=== PATIENT | male | born 1965 | race Caucasian/White ===

== ENCOUNTER → 2021-02-25 14:47 | Outpatient (CLI) | payer OTHER, SELFPAY ==
--- NOTE | 2021-02-25 14:51 | DI.RAD.S_ITS ---
PROCEDURE: XR HIP W PEL IF DONE RT 2V INDICATIONS: R hip pain s/p fall TECHNIQUE: AP pelvis with lateral view of the right hip. COMPARISON: None. FINDINGS: Bones: No fractures or dislocations. Pelvic ring appears intact. No suspicious bony lesions. Soft tissues: The visualized bowel gas pattern is normal. No suspicious soft tissue calcifications. IMPRESSION: 1. No fracture or dislocation. Dictated by: Rafa Bolaños M.D. on 02/25/2021 at 15:37 Approved by: Rafa Bolaños M.D. on 02/25/2021 at 15:38
--- NOTE | 2021-02-25 14:51 | DI.RAD.S_ITS ---
PROCEDURE: XR SHOULDER RT MIN 2V INDICATIONS: R shoulder/clavicle pain s/p fall TECHNIQUE: 3 views of the shoulder were acquired. COMPARISON: None. FINDINGS: Bones: No fractures or dislocations. No suspicious bony lesions. Visualized ribs appear intact. Mild to moderate degenerative hypertrophy at the AC joint appreciated. Soft tissues: No suspicious soft tissue calcifications. Punctate calcifications near the rotator cuff insertion. IMPRESSION: No fracture. [id number] shoulder DJD. Question of calcific tendinitis. Dictated by: Jose Alberto Lewis M.D. on 02/25/2021 at 15:42 Approved by: Jose Alberto Lewis M.D. on 02/25/2021 at 15:43
--- NOTE | 2021-02-25 14:51 | DI.RAD.S_ITS ---
PROCEDURE: XR KNEE RT 3V INDICATIONS: R knee pain s/p fall TECHNIQUE: 3 views of the knee were acquired. COMPARISON: None. FINDINGS: Bones: No fractures or dislocations. No suspicious bony lesions. Soft tissues: No joint effusion. No suspicious soft tissue calcifications. IMPRESSION: 1. No fracture or dislocation. Dictated by: Rafa Bolaños M.D. on 02/25/2021 at 15:38 Approved by: Rafa Bolaños M.D. on 02/25/2021 at 15:42
== END ==
PROVIDERS: Referring Provider Physician Assistant; Visit Provider Physician Assistant
DX: M25.561 Pain in right knee (principal); M25.511 Pain in right shoulder; M19.011 Primary osteoarthritis, right shoulder
CPT/HCPCS: 73030; 73502; 73562

== ENCOUNTER 2021-03-27 14:54 | Emergency (ER) | payer OTHER, SELFPAY ==
[2021-03-27] VITALS (7 sets, daily range): BP systolic 127–138; BP diastolic 77–88; PULSE 79–97; RESP 12–20; TEMP 36.6; O2SAT 95–98; BMI 39.2
[2021-03-27 16:09] LABS: Add Manual Diff / Slide Review NO; Basophils Absolute Auto 100 /uL (0-100); Basophils Percent Auto 1.1 % (0-2); Eosinophils Absolute Auto 200 /uL (0-450); Eosinophils Percent Auto 2.3 % (2-4); Hemoglobin 16.7 g/dL (13.5-17.5); Lymphocytes Absolute Auto 3600 /uL (1100-4500); Lymphocytes Percent Auto 34.7 % (25-40); Mean Corpuscular HGB Conc 34.1 % (30-36); Mean Corpuscular Hemoglobin 30.6 PG (26-34); Mean Corpuscular Volume 89.5 fL (80-100); Monocytes Absolute Auto 800 /uL (0-900); Monocytes Percent Auto 7.2 % (3-14); Neutrophils Absolute Auto 5800 /uL (1500-7000); Neutrophils Percent Auto 54.7 % (50-75); Platelet Count 238 X10^3/uL (150-400); Red Blood Cell Count 5.47 X10^6/uL (4.5-5.9); Red Cell Distribution Width 13.9 % (11.6-14.8); White Blood Cell Count 10.5 X10^3/uL (4.5-11.0)
[2021-03-27 16:18] LABS: Alanine Aminotransferase 51 IU/L (<50); Albumin 4.6 g/dL (3.5-5.0); Albumin Globulin Ratio 1.2 (1.0-2.8); Alkaline Phosphatase 63 U/L (38-126); Aspartate Aminotransferase 38 IU/L (17-59); BUN Creatinine Ratio 14.5 (6-22); Bilirubin Total 0.7 mg/dL (0.2-1.3); Blood Urea Nitrogen 11 mg/dL (9-20); Calcium 9.9 mg/dL (8.4-10.2); Carbon Dioxide 24 mmol/L (22-32); Chloride 108 mmol/L (98-107); Estimated Glomerular Filt Rate > 60.0 mL/min (>60); Globulin 3.7 g/dL (1.7-4.1); Glucose 101 mg/dL (70-100); HEMOLYSIS 44 (0-50); Lipase 93 U/L (23-300); Sodium 142 mmol/L (137-145); Total Protein 8.3 g/dL (6.3-8.2)
--- NOTE | 2021-03-27 16:39 | ED.ABDPAIN ---
HPI - Abdominal Pain General Chief Complaint: Abdominal Pain Stated Complaint: appendix issues Time Seen by Provider: 03/27/21 15:35 Source: patient Mode of arrival: Ambulatory Limitations: no limitations History of Present Illness HPI narrative: This is a 55-year-old male who comes emergency department with complaint of right lower quadrant pain that started last night. Patient states it has continued to be present. He denies any fevers or chills. He denies any nausea or vomiting. He denies any changes to bowel movements. He denies any issues with urination. Patient states he has chronic low back pain which has not changed in intensity or characteristic. He takes methocarbamol for chronic neck pain. Patient has spinal stenosis. Patient states he has had his gallbladder removed. Denies any allergies to medications. Positive for tobacco, no alcohol, no illicit. Patient's last meal was last night he had a delicious steak and his last fluids were this morning between 630 in 830 he had 2 cups of coffee. Related Data Previous Rx's Medication Instructions Recorded methocarbamol 750 mg tablet 750 mg PO Q4H #30 tab 02/25/21 hydrocodone-acetaminophen 1 tab PO QID PRN #5 tab 03/27/21 Allergies Allergy/AdvReac Type Severity Reaction Status Date / Time No Known Drug Allergies Allergy Verified 03/27/21 15:10 Review of Systems Review of Systems ROS Unobtainable: All systems reviewed & are unremarkable except as noted in HPI and below Patient History Social History Smoking Status: Unknown if ever smoked Smoking Status: Unknown if ever smoked Substance Use Type: does not use Exam Narrative Exam Narrative: GENERAL: Alert and oriented x three, obese male in mild distress. HEENT: Head normocephalic, atraumatic, EOMI, pupils reactive, face symmetric, moist mucous membranes NECK: Supple, full range of motion CARDIOVASCULAR: Regular rate and rhythm without murmurs, rubs or gallops. RESPIRATORY: Breath sounds equal bilaterally, no wheezes rales or rhonchi. ABDOMEN: Soft, positive for right lower quadrant tenderness. Normoactive bowel sounds all 4 quadrants. No guarding, positive for rebound, no rigidity, no mass : No CVA tenderness EXTREMITIES: Normal range of motion, no clubbing or edema. Neurovascularly intact NEUROLOGICAL: Cranial nerves II through XII grossly intact. Moving all extremities SKIN: Warm, dry, no petechiae, no rashes or lesions. Initial Vital Signs Initial Vital Signs: Vital Signs Temperature 97.8 F 03/27/21 15:07 Pulse Rate 95 H 03/27/21 15:07 Respiratory Rate 12 03/27/21 15:07 Blood Pressure 127/77 03/27/21 15:07 Pulse Oximetry 98 03/27/21 15:07 Course Orders Ordered: ED Orders 03/27/21 15:11 EKG-12 Lead Stat 03/27/21 15:55 Complete Blood Count AUTO DIFF Stat Comprehensive Metabolic Panel Stat Lipase Stat 03/27/21 17:01 CT abdomen pelvis w con Stat 03/27/21 17:15 COVID19 - ADMIT ([employer] swab/PCR) Stat Consultations Consultation #1: Dr. Villalobos, discussed likely appendicitis. Going for CT and will recontact after imaging is done. Time: 17:05 Vital Signs Vital signs: Vital Signs - 8 hr 03/27/21 15:07 03/27/21 16:01 03/27/21 16:16 Temperature 97.8 F Pulse Rate 95 H 89 87 Respiratory Rate 12 Blood Pressure 127/77 129/80 Pulse Oximetry 98 95 95 03/27/21 16:30 03/27/21 17:18 03/27/21 17:30 Temperature Pulse Rate 85 97 H 81 Respiratory Rate 19 14 17 Blood Pressure 135/79 138/88 Pulse Oximetry 95 98 03/27/21 18:00 Temperature Pulse Rate 79 Respiratory Rate 20 Blood Pressure 129/83 Pulse Oximetry 96 MDM - Abdominal Pain Lab Data Attestation: I reviewed the patient's lab results. Result diagrams: 03/27/21 15:55 03/27/21 15:55 Labs: Lab Results 03/27/21 03/27/21 03/27/21 Range/Units 15:55 15:55 17:15 WBC 10.5 (4.5-11.0) X10^3/uL RBC 5.47 (4.5-5.9) X10^6/uL Hgb 16.7 (13.5-17.5) g/dL Hct 49.0 (41-53) % MCV 89.5 (80-100) fL MCH 30.6 (26-34) PG MCHC 34.1 (30-36) % RDW 13.9 (11.6-14.8) % Plt Count 238 (150-400) X10^3/uL Neut % (Auto) 54.7 (50-75) % Lymph % (Auto) 34.7 (25-40) % [place] % (Auto) 7.2 (3-14) % Eos % (Auto) 2.3 (2-4) % Baso % (Auto) 1.1 (0-2) % Neut # (Auto) 5800 (8490-1341) /uL Lymph # (Auto) 3600 (5969-4439) /uL [place] # (Auto) 800 (0-900) /uL Eos # (Auto) 200 (0-450) /uL Baso # (Auto) 100 (0-100) /uL Sodium 142 (137-145) mmol/L Potassium 4.0 (3.4-5.1) mmol/L Chloride 108 H (98-107) mmol/L Carbon Dioxide 24 (22-32) mmol/L BUN 11 (9-20) mg/dL Creatinine 0.76 (0.66-1.25) mg/dL Estimated GFR > 60.0 (>60) mL/min BUN/Creatinine Ratio 14.5 (6-22) Glucose 101 H (70-100) mg/dL Calcium 9.9 (8.4-10.2) mg/dL Total Bilirubin 0.7 (0.2-1.3) mg/dL AST 38 (17-59) IU/L ALT 51 H (<50) IU/L Alkaline Phosphatase 63 (38-126) U/L Total Protein 8.3 H (6.3-8.2) g/dL Albumin 4.6 (3.5-5.0) g/dL Globulin 3.7 (1.7-4.1) g/dL Albumin/Globulin Ratio 1.2 (1.0-2.8) Lipase 93 (23-300) U/L SARS-CoV-2 (PCR) Negative (Negative) Point of care testing: Urine Dip Bedside Urine Glucose Negative Bedside Urine Bilirubin - Negative Bedside Urine Ketone - Negative Urine Specific [place] 1.030 Bedside Urine Occult Blood - Negative Bedside Urine pH 6.0 Bedside Urine Protein ++ 100 Bedside Urine Urobilinogen - Negative Bedside Urine Nitrite - Negative Bedside Urine Leukocytes - Negative Esterase ECG Data Attestation: I personally reviewed and interpreted this ECG as follows: Prior ECG tracings: not available for review Interpretation: Normal sinus rhythm rate 86 [place] 154 QRS of [address] elevation or depression. MDM Narrative Medical decision making narrative: This is a 55-year-old male with right lower quadrant pain that started last night. Patient is quite uncomfortable. Labs are negative with negative urine. Patient does not really have any other symptoms. CT imaging and does not visualize the appendix but there was no changes around the area of the cecum. It is noted that patient has appears to be epiploic appendagitis with an area of change at the sigmoid colon which is torturous on the right. This is consistent with patient's physical exam. Reviewed findings with patient today. He is where we did not find the appendix but unlikely to be a true appendicitis. 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 Plan for NSAIDs. Patient asked for a few tablets of narcotic pain medication to help him sleep at night. Denies any additional questions or concerns. Discharge Plan Departure Patient Disposition: Home Clinical Impression: Epiploic appendagitis Activity Restrictions/Additional Instructions: Your imaging today shows Epiploic appendagitis, this is a situation where the fact twists and becomes inflamed. It is not typically dangerous and typically resolves on it's own in 1-2 weeks. It also shows a diffuse fatty liver and a left adrenal lipoma is noted. Your appendix itself is not clearly identified but the likely source of your pain is found at the distal sigmoid colon on the right side. Treatment is typically pain control with NSAIDs. You may take ibuprofen up to 800 mg every 8 hours and/or Tylenol to a 1000 mg every 8 hours as needed for pain. If necessary may take narcotic pain medication in addition. This medication can make you sleepy do not drive, perform hazardous activities or make any major decisions while taking it. This medication will make you constipated please take a stool softener once to twice daily until stools are soft and regular. Prescription to [facility]. Please return for fevers greater than 100.4 F, new or worsening abdominal, back or flank pain, persistent vomiting, black or bloody stools, difficulty with urination or other new or concerning symptoms. Prescriptions: New hydrocodone-acetaminophen 5-325 mg tablet 1 tab PO QID PRN (Reason: pain) Qty: 5 RF: 0 No Action methocarbamol 750 mg tablet 750 mg PO Q4H Qty: 30 RF: 0 Referrals: Michael Garcia MD [Primary Care Provider] -
--- NOTE | 2021-03-27 17:01 | DI.CT.S_ITS ---
PROCEDURE: CT ABDOMEN PELVIS W CON INDICATIONS: RLQ pain. TECHNIQUE: After the administration of intravenous contrast, axial sections acquired from the lung bases to the pubic symphysis. Coronal and sagittal reformats were performed. For radiation dose reduction, the following was used: automated exposure control, adjustment of mA and/or kV according to patient size. COMPARISON: None. FINDINGS: Image quality: Excellent. Lung bases: Unremarkable. Heart: No significant findings. ABDOMEN: Liver: Diffuse fatty liver infiltration is noted. Gallbladder: Removed. Biliary ducts: Unremarkable. Pancreas: Unremarkable. Spleen: Unremarkable. Adrenal Glands: There is a left adrenal lipoma seen, as on series 2, image 25 measuring 14 mm. Kidneys and Ureters: Unremarkable. Stomach and Bowel: In this patient with this given history, scrutiny is given to the appendix and the right lower quadrant. No appendix (either normal or abnormal) is identified on this study. Focal inflammatory change can be seen surrounding a focus of fat connected to the distal sigmoid colon, which is tortuous and on the right. There is mild associated wall thickening seen of the distal sigmoid colon. No abscess is seen. Peritoneum: No abnormal intraperitoneal fluid. No free air. Ventral Wall: No hernias. Abdominal Nodes: No retroperitoneal or mesenteric adenopathy by size criteria. Vessels: Aorta and inferior vena cava are normal in size. PELVIS: Pelvic Organs: Unremarkable. Bladder: Unremarkable. Pelvic Nodes: No enlarged lymph nodes. Miscellaneous: No hernias are seen. Bones: Age-appropriate bony degenerative changes are seen. IMPRESSION: Epiploic appendagitis. This is a benign, self-limited process. No appendix (either normal or abnormal) is identified on this study. Incidental note is made of: Fatty liver infiltration Cholecystectomy Left adrenal lipoma, benign Note: Case discussed by telephone with Dr. Zambrano at 4:52 p.m. [place] time on March 27, 2021. Dictated by: Santos Borrego M.D. on 03/27/2021 at 16:47 Approved by: Santos Borrego M.D. on 03/27/2021 at 16:53
[2021-03-27 18:20] LABS: COVID19 - ADMIT (NP swab/PCR) Negative (Negative)
== END 2021-03-27 18:24 | disposition home or self-care (01) ==
PROVIDERS: Emergency Medicine; Emergency Provider Emergency Medicine; PCP Family Medicine
DX: K63.89 Other specified diseases of intestine (principal); R10.31 Right lower quadrant pain; D17.79 Benign lipomatous neoplasm of other sites; Z20.822 Contact with and (suspected) exposure to COVID-19
CPT/HCPCS: 36415; 74177; 80053; 81003; 83690; 85025; 87635; 93005; 93010; 99284; C9803; Q9967

== ENCOUNTER 2022-03-29 20:32 | Emergency (ER) | payer OTHER, SELFPAY ==
[2022-03-29 20:46] VITALS: BP 118/86; PULSE 111; RESP 16; TEMP 37.4; O2SAT 93; BMI 40.0
--- NOTE | 2022-03-29 21:14 | DI.RAD.S_ITS ---
PROCEDURE: XR CHEST 1V INDICATIONS: short of breath TECHNIQUE: One view of the chest was acquired. COMPARISON: None. FINDINGS: Surgical changes and devices: None. Lungs and pleura: There are patchy indistinct airspace opacities bilaterally. The medial lung apices are partially obscured by patient's neck soft tissues. No definite pleural effusions or pneumothorax. Mediastinum: Mediastinal contours appear normal. Heart size is normal. Bones and chest wall: No suspicious bony lesions. Overlying soft tissues appear unremarkable. IMPRESSION: 1. Bilateral patchy indistinct opacities are nonspecific but suggestive of pneumonia. Dictated by: Rafa Bolaños M.D. on 03/29/2022 at 23:21 Approved by: Rafa Bolaños M.D. on 03/29/2022 at 23:23
[2022-03-29 21:26] LABS: COVID19 -Nasal RAPID Negative (Negative)
--- NOTE | 2022-03-29 21:44 | ED.SEPSIS ---
HPI - Sepsis General Chief Complaint: Fever Evaluation Sepsis Screen: Possible Sepsis Risk Sepsis Infection Criteria Present: Suspected New Infection Narrative: Patient is a 56-year-old male who has history of tobacco abuse presents today with fever ongoing for the last 3 days. He said last night it was as high as 104. He has had significant chills. He is currently afebrile. He denies any worsening productive cough he has no shortness of breath no chest pain no nausea no vomiting painful or frequent urination. He actually states he feels okay now but is concerned because he has had these ongoing fevers and extreme fatigue. COVID test in the ED is currently negative. Review of Systems Review of Systems Narrative: GENERAL: Fever, fatigue, see HPI HEENT: Denies sinus pain, ear pain, sore throat, difficulty swallowing, neck pain RESPIRATORY: Denies dyspnea, cough, wheezing, hemoptysis, sputum. CARDIOVASCULAR: Denies chest pain, palpitations, orthopnea, edema GASTROINTESTINAL: Denies nausea, vomiting, abdominal pain, diarrhea, constipation, melena. : Denies dysuria, frequency, incontinence, hematuria, urinary retention, flank pain. MUSCULOSKELETAL: Denies weakness, joint pain, or bony pain SKIN: No rash, no erythema, no pruritus NEUROLOGIC: Denies weakness, dizziness, headache, numbness, change in speech, confusion PSYCHIATRIC: No concerning psychosocial issues. 12 point review of systems is negative except for those stated above and HPI Patient History Social History Smoking Status: Unknown if ever smoked Smoking Status: Unknown if ever smoked Substance Use Type: does not use Exam Initial Vital Signs Initial Vital Signs: Vital Signs Temperature 99.3 F 03/29/22 20:46 Pulse Rate 111 H 03/29/22 20:46 Respiratory Rate 16 03/29/22 20:46 Blood Pressure 118/86 03/29/22 20:46 Pulse Oximetry 93 03/29/22 20:46 Oxygen Delivery Method 03/29/22 20:46 GENERAL: Alert well-appearing 56-year-old male and in no acute distress. HEENT: Head atraumatic,EOMI, pupils reactive, face symmetric, moist mucous membranes CARDIOVASCULAR: Regular rate and rhythm without murmurs, rubs or gallops. RESPIRATORY: Breath sounds equal bilaterally, no wheezes rales or rhonchi. ABDOMEN: Soft, nontender. Normoactive bowel sounds all 4 quadrants. No guarding or rebound. EXTREMITIES: Normal range of motion, no clubbing or edema. Neurovascularly intact NEUROLOGICAL: Alert and oriented x4. SKIN: Warm, dry, no laceration, no petechiae, no rashes or lesions. Scores CURB-65 Confusion: No BUN >19mg/dL (>7mmol/L): No Respiratory rate greater or equal to 30: No SBP <90mmHg or DBP less or equal to 60mmHg: No Age 65 or Older: No CURB-65 Total: 0 Score 0-1 Outpatient care, Score 2 Inpt vs. Obs, Score 3 or over Inpt admit with ICU for score of 4-5 Course Orders Ordered: ED Orders 03/29/22 20:45 COVID19 -Nasal RAPID/Pre-Proc Stat 03/29/22 21:14 Chest [XR chest 1V] Stat 03/29/22 22:13 EKG-12 Lead Stat 03/29/22 22:20 Complete Blood Count AUTO DIFF Stat Comprehensive Metabolic Panel Stat Lactate (Lactic Acid) Stat NT-proBNP (BNP-Adult 18+) Stat Procalcitonin Stat Troponin & CK Cardiac Panel Stat 03/29/22 22:45 Blood Culture Stat 03/29/22 23:08 Urinalysis and Microscopic Stat Discontinued Medications Doxycycline Hyclate (Doxycycline Hyclate 100 Mg Tablet) 100 mg PO NOW ONE Stop: 03/29/22 23:54 Last Admin: 03/29/22 23:58 Dose: 100 mg Documented By: KIRSTEN Sodium Chloride (Normal Saline 0.9%) 1,000 mls @ 1,000 mls/hr IV BOLUS ONE Stop: 03/29/22 23:59 Last Admin: 03/29/22 23:06 Dose: 1,000 mls/hr Documented By: KIRSTEN Vital Signs Vital signs: Vital Signs - 8 hr 03/29/22 20:46 03/29/22 22:23 03/29/22 22:25 Temperature 99.3 F Pulse Rate 111 H 100 H Respiratory Rate 16 Blood Pressure 118/86 142/80 H Pulse Oximetry 93 93 Oxygen Delivery Method Room Air 03/29/22 22:25 03/29/22 22:30 03/29/22 22:30 Temperature Pulse Rate 99 H 100 H Respiratory Rate 25 H 22 Blood Pressure 137/78 Pulse Oximetry 92 90 L Oxygen Delivery Method 03/29/22 23:00 03/29/22 23:30 03/30/22 00:00 Temperature Pulse Rate 99 H 97 H 98 H Respiratory Rate 25 H 21 22 Blood Pressure Pulse Oximetry 96 96 96 Oxygen Delivery Method 03/30/22 00:01 03/30/22 00:01 Temperature Pulse Rate 96 H Respiratory Rate 21 Blood Pressure 146/77 H Pulse Oximetry 95 Oxygen Delivery Method Sepsis Guideline Criteria Level 1 - Infection Sepsis Infection Criteria Present: Suspected New Infection Treatment Initiated Antibiotics:: IV antimicrobials will be initiated as soon as possible after recognition of sepsis state and within one hour for both sepsis and septic shock. MDM - Sepsis Lab Data Result diagrams: 03/29/22 22:20 03/29/22 22:20 Labs: Lab Results 03/29/22 03/29/22 03/29/22 Range/Units 20:45 22:20 22:20 WBC 7.8 (4.5-11.0) X10^3/uL RBC 5.50 (4.5-5.9) X10^6/uL Hgb 17.0 (13.5-17.5) g/dL Hct 48.4 (41-53) % MCV 87.9 (80-100) fL MCH 30.9 (26-34) PG MCHC 35.1 (30-36) % RDW 13.7 (11.6-14.8) % Plt Count 214 (150-400) X10^3/uL Neut % (Auto) 59.4 (50-75) % Lymph % (Auto) 26.0 (25-40) % [place] % (Auto) 11.7 (3-14) % Eos % (Auto) 2.1 (2-4) % Baso % (Auto) 0.8 (0-2) % Neut # (Auto) 4600 (1315-9896) /uL Lymph # (Auto) 2000 (4992-1827) /uL [place] # (Auto) 900 (0-900) /uL Eos # (Auto) 200 (0-450) /uL Baso # (Auto) 100 (0-100) /uL Sodium 142 (137-145) mmol/L Potassium 3.7 (3.4-5.1) mmol/L Chloride 108 H (98-107) mmol/L Carbon Dioxide 24 (22-32) mmol/L BUN 10 (9-20) mg/dL Creatinine 0.87 (0.66-1.25) mg/dL Estimated GFR > 60 (>60) mL/min BUN/Creatinine Ratio 11.5 (6-22) Glucose 149 H (70-100) mg/dL Lactate (0.7-2.1) mmol/L Calcium 9.0 (8.4-10.2) mg/dL Total Bilirubin 0.5 (0.2-1.3) mg/dL AST 33 (17-59) IU/L ALT 47 (<50) IU/L Alkaline Phosphatase 52 (38-126) U/L Total Creatine Kinase 70 (55-170) U/L CK-MB (CK-2) TNP CK-MB (CK-2) Rel Index TNP Troponin I < 0.012 (0.01-0.034) ng/mL NT-Pro-B Natriuret Pep 21 (<125) pg/mL Total Protein 8.0 (6.3-8.2) g/dL Albumin 4.4 (3.5-5.0) g/dL Globulin 3.6 (1.7-4.1) g/dL Albumin/Globulin Ratio 1.2 (1.0-2.8) Procalcitonin 0.77 H (<0.5) ng/mL Urine Color Urine Appearance Urine pH (4.5-8.0) Ur Specific [place] (1.000-1.035) Urine Protein (Negative) Urine Glucose (UA) (Negative) g/dL Urine Ketones (NEGATIVE) Urine Occult Blood (Negative) Urine Nitrate (Negative) Urine Bilirubin (NEGATIVE) Urine Urobilinogen (0.2) E.U./dL Ur Leukocyte Esterase (NEGATIVE) Urine RBC (0-5/HPF) Urine WBC (0-5/HPF) Urine Bacteria (None) Ur Culture Indicated? SARS-CoV-2 (PCR) Negative (Negative) 03/29/22 03/29/22 Range/Units 22:20 23:08 WBC (4.5-11.0) X10^3/uL RBC (4.5-5.9) X10^6/uL Hgb (13.5-17.5) g/dL Hct (41-53) % MCV (80-100) fL MCH (26-34) PG MCHC (30-36) % RDW (11.6-14.8) % Plt Count (150-400) X10^3/uL Neut % (Auto) (50-75) % Lymph % (Auto) (25-40) % [place] % (Auto) (3-14) % Eos % (Auto) (2-4) % Baso % (Auto) (0-2) % Neut # (Auto) (9564-4813) /uL Lymph # (Auto) (3052-1186) /uL [place] # (Auto) (0-900) /uL Eos # (Auto) (0-450) /uL Baso # (Auto) (0-100) /uL Sodium (137-145) mmol/L Potassium (3.4-5.1) mmol/L Chloride (98-107) mmol/L Carbon Dioxide (22-32) mmol/L BUN (9-20) mg/dL Creatinine (0.66-1.25) mg/dL Estimated GFR (>60) mL/min BUN/Creatinine Ratio (6-22) Glucose (70-100) mg/dL Lactate 1.6 (0.7-2.1) mmol/L Calcium (8.4-10.2) mg/dL Total Bilirubin (0.2-1.3) mg/dL AST (17-59) IU/L ALT (<50) IU/L Alkaline Phosphatase (38-126) U/L Total Creatine Kinase (55-170) U/L CK-MB (CK-2) CK-MB (CK-2) Rel Index Troponin I (0.01-0.034) ng/mL NT-Pro-B Natriuret Pep (<125) pg/mL Total Protein (6.3-8.2) g/dL Albumin (3.5-5.0) g/dL Globulin (1.7-4.1) g/dL Albumin/Globulin Ratio (1.0-2.8) Procalcitonin (<0.5) ng/mL Urine Color Yellow Urine Appearance Clear Urine pH 6.5 (4.5-8.0) Ur Specific [place] 1.015 (1.000-1.035) Urine Protein 2+ H (Negative) Urine Glucose (UA) Negative (Negative) g/dL Urine Ketones Trace H (NEGATIVE) Urine Occult Blood Negative (Negative) Urine Nitrate Negative (Negative) Urine Bilirubin Negative (NEGATIVE) Urine Urobilinogen 1.0 (0.2) E.U./dL Ur Leukocyte Esterase Negative (NEGATIVE) Urine RBC None seen (0-5/HPF) Urine WBC 0-1/hpf (0-5/HPF) Urine Bacteria None seen (None) Ur Culture Indicated? Cult not indicated SARS-CoV-2 (PCR) (Negative) Imaging Data Chest x-ray: Radiologist's Impression: XRay Report Signed Patient: Yonathan Orozco MR#: [id number] : 1965 Acct:[id number] Age/Sex: 56 / M Date of Service: 03/29/22 Loc: ED Accession Number: [id number] ?? Procedure: XR chest 1V Ordering Provider: Rachele Jarrett D.O. PROCEDURE:? XR CHEST 1V ? INDICATIONS:? short of breath ? TECHNIQUE:? One view of the chest was acquired.? ? COMPARISON:? None. ? FINDINGS:? ? Surgical changes and devices:? None.? ? Lungs and pleura:? There are patchy indistinct airspace opacities bilaterally.? The medial lung apices are partially obscured by patient's neck soft tissues.? No definite pleural effusions or pneumothorax.? ? Mediastinum:? Mediastinal contours appear normal.? Heart size is normal.? ? Bones and chest wall:? No suspicious bony lesions.? Overlying soft tissues appear unremarkable.? ? IMPRESSION:? ? 1.? Bilateral patchy indistinct opacities are nonspecific but suggestive of pneumonia.? ? ? Dictated by: Rafa Bolaños M.D. on 03/29/2022 at 23:21? ECG Data Interpretation: Normal sinus rhythm rate 99 [place] interval 150 QRS 86 QTC 420 mild artifact noted no significant ST changes MDM Narrative Medical decision making narrative: Patient has had fever ongoing for last 3 days. Chest x-ray does show pneumonia his procalcitonin is elevated however no leukocytosis normal lactate blood pressure is within normal limits. He is given fluid here in the ED and is currently afebrile. At this time he can be treated as an outpatient. He is given his 1st dose of doxycycline here in the ED and prescription sent to pharmacy. Discussed with him when to return Discharge Plan Departure Patient Disposition: Home Clinical Impression: Pneumonia Instructions: DI for Pneumonia -- Adult Activity Restrictions/Additional Instructions: *You have been diagnosed with pneumonia *What to do: At this time x-ray does show pneumonia. Will start you on antibiotics. He should start feeling better after 2-3 days of antibiotics. Please be sure to stay hydrated with water Gatorade. May eat as tolerated. Fever control with Tylenol or Motrin. *Continue to take medications as directed Doxycycline 100 mg twice a day for 10 days--> SENT TO [facility] *Follow up with your primary care provider in 2-3 days or call [phone] *Return to ER if you should have increased confusion, worsening shortness of breath, no improvement after 5 days of antibiotic or any new, worsening or concerning symptoms Prescriptions: New doxycycline hyclate 100 mg capsule 100 mg PO BID Qty: 20 0RF No Action methocarbamol 750 mg tablet 750 mg PO Q4H Qty: 30 0RF hydrocodone-acetaminophen 5-325 mg tablet 1 tab PO QID PRN (Reason: pain) Qty: 5 0RF Referrals: Michael Garcia MD [Primary Care Provider] - Visit Report Forms: Patient Portal/API
[2022-03-29 22:23] VITALS: PULSE 100; O2SAT 93
[2022-03-29 22:25] VITALS: BP 142/80; PULSE 99; RESP 25; O2SAT 92
[2022-03-29 22:30] VITALS: BP 137/78; PULSE 100; RESP 22; O2SAT 90
[2022-03-29 22:41] LABS: Add Manual Diff / Slide Review NO; Basophils Absolute Auto 100 /uL (0-100); Basophils Percent Auto 0.8 % (0-2); Eosinophils Absolute Auto 200 /uL (0-450); Eosinophils Percent Auto 2.1 % (2-4); Hematocrit 48.4 % (41-53); Lymphocytes Absolute Auto 2000 /uL (1100-4500); Mean Corpuscular HGB Conc 35.1 % (30-36); Mean Corpuscular Hemoglobin 30.9 PG (26-34); Mean Corpuscular Volume 87.9 fL (80-100); Monocytes Absolute Auto 900 /uL (0-900); Monocytes Percent Auto 11.7 % (3-14); Neutrophils Absolute Auto 4600 /uL (1500-7000); Neutrophils Percent Auto 59.4 % (50-75); Platelet Count 214 X10^3/uL (150-400); Red Cell Distribution Width 13.7 % (11.6-14.8); White Blood Cell Count 7.8 X10^3/uL (4.5-11.0)
[2022-03-29 22:46] LABS: Alanine Aminotransferase 47 IU/L (<50); Albumin 4.4 g/dL (3.5-5.0); Albumin Globulin Ratio 1.2 (1.0-2.8); Alkaline Phosphatase 52 U/L (38-126); Aspartate Aminotransferase 33 IU/L (17-59); BUN Creatinine Ratio 11.5 (6-22); Bilirubin Total 0.5 mg/dL (0.2-1.3); Blood Urea Nitrogen 10 mg/dL (9-20); Carbon Dioxide 24 mmol/L (22-32); Chloride 108 mmol/L (98-107); Creatine Kinase 70 U/L (55-170); Estimated Glomerular Filt Rate > 60 mL/min (>60); Globulin 3.6 g/dL (1.7-4.1); Glucose 149 mg/dL (70-100); HEMOLYSIS 29 (0-50); Lactate (Lactic Acid) 1.6 mmol/L (0.7-2.1); Potassium 3.7 mmol/L (3.4-5.1); Sodium 142 mmol/L (137-145)
[2022-03-29 22:58] LABS: NT-proBNP (BNP-Adult 18+) 21 pg/mL (<125); Troponin I < 0.012 ng/mL (0.01-0.034)
[2022-03-29 23:00] VITALS: PULSE 99; RESP 25; O2SAT 96
[2022-03-29 23:02] LABS: Procalcitonin 0.77 ng/mL (<0.5)
[2022-03-29] MEDS: SODIUM CHLORIDE 0.9% 1,000 ML 1000 ML IV (23:06)
[2022-03-29 23:30] VITALS: PULSE 97; RESP 21; O2SAT 96
[2022-03-29 23:57] LABS: Appearance Urine UA CLEAR; Bilirubin Urine UA NEGATIVE (NEGATIVE); Color Urine UA YELLOW; Glucose Urine UA NEGATIVE (Negative); Ketones Urine UA TRACE (NEGATIVE); Leukocyte Esterase Urine UA NEGATIVE (NEGATIVE); Nitrite Urine UA NEGATIVE (Negative); Occult Blood Urine UA NEGATIVE (Negative); Protein Urine UA 2+ (Negative); Specific Gravity Urine UA 1.015 (1.000-1.035); pH Urine UA 6.5 (4.5-8.0)
[2022-03-29] MEDS: DOXYCYCLINE HYCLATE 100 MG TABLET PO (23:58)
[2022-03-30] VITALS: PULSE 98; RESP 22; O2SAT 96
[2022-03-30 00:01] VITALS: BP 146/77; PULSE 96; RESP 21; O2SAT 95
[2022-03-30 00:21] LABS: Bacteria Urine None Seen; Culture Indicated Urine Cult Not Indicated; RBC Urine None Seen (0-5/HPF); WBC Urine 0-1/HPF (0-5/HPF)
== END 2022-03-30 00:15 | disposition home or self-care (01) ==
PROVIDERS: Emergency Provider Emergency Medicine; PCP Family Medicine
DX: J18.9 Pneumonia, unspecified organism (principal); R07.9 Chest pain, unspecified; Z20.822 Contact with and (suspected) exposure to COVID-19
CPT/HCPCS: 36415; 71045; 80053; 81001; 82550; 83605; 83880; 84145; 84484; 85025; 87040; 87635; 93005; 99284; C9803

== ENCOUNTER 2024-04-15 18:44 | Emergency (ER) | payer OTHER, SELFPAY ==
[2024-04-15] VITALS (19 sets, daily range): BP systolic 122–151; BP diastolic 64–82; PULSE 64–86; RESP 12–24; TEMP 36.6; O2SAT 92–98; BMI 34.5
--- NOTE | 2024-04-15 19:18 | PC.NURSE ---
At this time I spoke with Dr. Tmoas regarding patient. No nursing orders placed at this time per
--- NOTE | 2024-04-15 19:45 | DI.RAD.S_ITS ---
PROCEDURE: XR CHEST 1V INDICATIONS: chest pain TECHNIQUE: One view of the chest was acquired. COMPARISON: [facility], CR, XR CHEST 1V, 03/29/2022, 21:36. FINDINGS: Surgical changes and devices: None. Lungs and pleura: Diffuse interstitial prominence. Streaky bibasilar opacities favored to represent atelectasis. No substantial pleural effusion or pneumothorax. Suggestion of perihilar airway thickening. Mediastinum: Mediastinal contours appear normal. Heart size is stable. Bones and chest wall: No suspicious bony lesions. Overlying soft tissues appear unremarkable. IMPRESSION: Diffuse interstitial prominence and streaky bibasilar opacities favored to represent atelectasis. No dense consolidation. Mild perihilar airway thickening. Findings may be related to an infectious or inflammatory process although early pulmonary edema not excluded if clinically appropriate. Dictated by: Bo Galaviz M.D. on 04/15/2024 at 20:12 Approved by: Bo Galaviz M.D. on 04/15/2024 at 20:13
[2024-04-15 19:51] LABS: Add Manual Diff / Slide Review NO; Basophils Absolute Auto 100 /uL (0-100); Basophils Percent Auto 0.7 % (0-2); Eosinophils Absolute Auto 400 /uL (0-450); Eosinophils Percent Auto 3.6 % (2-4); Hematocrit 48.9 % (41-53); Hemoglobin 16.8 g/dL (13.5-17.5); Lymphocytes Absolute Auto 3100 /uL (1100-4500); Lymphocytes Percent Auto 29.2 % (25-40); Mean Corpuscular HGB Conc 34.4 % (30-36); Mean Corpuscular Hemoglobin 31.1 PG (26-34); Mean Corpuscular Volume 90.4 fL (80-100); Monocytes Absolute Auto 800 /uL (0-900); Monocytes Percent Auto 7.4 % (3-14); Neutrophils Absolute Auto 6200 /uL (1500-7000); Neutrophils Percent Auto 59.1 % (50-75); Platelet Count 239 X10^3/uL (150-400); Red Blood Cell Count 5.41 X10^6/uL (4.5-5.9); Red Cell Distribution Width 14.2 % (11.6-14.8); White Blood Cell Count 10.5 X10^3/uL (4.5-11.0)
--- NOTE | 2024-04-15 19:51 | EKG_ITS ---
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
[2024-04-15 19:59] LABS: Alanine Aminotransferase 32 IU/L (<50); Albumin 4.4 g/dL (3.5-5.0); Albumin Globulin Ratio 1.3 (1.0-2.8); Alkaline Phosphatase 58 U/L (38-126); Aspartate Aminotransferase 27 IU/L (17-59); BUN Creatinine Ratio 13.1 (6-22); Bilirubin Total 0.5 mg/dL (0.2-1.3); Blood Urea Nitrogen 11 mg/dL (9-20); Calcium 9.1 mg/dL (8.4-10.2); Carbon Dioxide 23 mmol/L (22-32); Chloride 111 mmol/L (98-107); Creatine Kinase 76 U/L (55-170); Estimated Glomerular Filt Rate > 60 mL/min (>60); Globulin 3.4 g/dL (1.7-4.1); Glucose 137 mg/dL (70-100); HEMOLYSIS 17 (0-50); Lipase 87 U/L (23-300); Magnesium 2.1 mg/dL (1.6-2.3); Potassium 3.9 mmol/L (3.4-5.1); Sodium 142 mmol/L (137-145); Total Protein 7.8 g/dL (6.3-8.2)
[2024-04-15 20:04] LABS: Prothrombin Time 11.7 SECONDS (9.4-12.5)
[2024-04-15 20:07] LABS: PTT Partial Thromboplastin Tim 39 SECONDS (25.1-36.5)
[2024-04-15 20:11] LABS: NT-proBNP (BNP-Adult 18+) < 20 pg/mL (<125); Troponin I < 0.012 ng/mL (0.01-0.034)
--- NOTE | 2024-04-15 21:21 | ED_ITS ---
HPI - Dizziness General Chief Complaint: Dizziness Stated Complaint: extreme dizziness Time Seen by Provider: 04/15/24 21:14 Source: patient Mode of arrival: Ambulatory History of Present Illness HPI Narrative: 58-year-old male had dizziness this afternoon from 5-6 p.m. a seems to be improved without specific treatment, has chronic cough that seemed to be increase this last week or so. No fevers or chills. Denies any falls injury new activities. He denies headache facial pain, denies neck pain. No weakness to face arm or leg. He felt a little unsteady in his gait when he was walking. No associated shortness of breath or chest pain. No previous stroke symptoms. No history of atrial fibrillation or heart problems known. He denies any pain to his head, face, neck, chest, upper back, lower back, abdomen, pelvis, lower extremities, upper extremities. Related Data Allergies Allergy/AdvReac Type Severity Reaction Status Date / Time No Known Drug Allergies Allergy Verified 04/15/24 19:01 Review of Systems Review of Systems Narrative: per HPI Patient History Social History Smoking Status: Unknown if ever smoked Smoking Status: Unknown if ever smoked Substance Use Type: does not use Exam Narrative Exam Narrative: GENERAL: Well-developed patient, in mild distress. HEAD: Atraumatic. Normocephalic. EYES: Pupils equal round and reactive. Extraocular motions intact. No scleral icterus. No injection or drainage. ENT: Nose without bleeding, purulent drainage. Throat without erythema, tonsillar hypertrophy or exudate. Airway patent. NECK: Trachea midline. Non tender CARDIOVASCULAR: Regular rate and rhythm without murmurs, gallops, or rubs. RESPIRATORY: Clear to auscultation. Breath sounds equal bilaterally. No wheezes, rales, or rhonchi. GASTROINTESTINAL: Abdomen soft, non-tender, nondistended. EXTREMITIES: No edema or joint tenderness. BACK: Nontender without deformity or crepitance. No flank tenderness. NEURO: AOx3. Nonfocal neuro exam, can move head side to side and up-down without dizziness symptoms SKIN: No rash or erythema of visible areas Initial Vital Signs Initial Vital Signs: Vital Signs Temperature 98 F 04/15/24 18:59 Pulse Rate 79 04/15/24 18:59 Respiratory Rate 17 04/15/24 18:59 Blood Pressure 151/79 H 04/15/24 18:59 Pulse Oximetry 97 04/15/24 18:59 Oxygen Delivery Method Room Air 04/15/24 18:59 Course Orders Ordered: Discontinued Medications Meclizine HCl (Meclizine Hcl 12.5 Mg Tablet) 50 mg PO NOW ONE Stop: 04/15/24 23:56 Last Admin: 04/16/24 00:05 Dose: 50 mg Documented By: JONG Vital Signs Vital signs: Vital Signs - 8 hr 04/15/24 18:59 04/15/24 19:37 04/15/24 19:38 Temperature 98 F Pulse Rate 79 82 Pulse Rate [Orthostatic Lying] Pulse Rate [Orthostatic Standing] Respiratory Rate 17 Blood Pressure 151/79 H 136/77 Blood Pressure [Orthostatic Lying] Blood Pressure [Orthostatic Sitting] Blood Pressure [Orthostatic Standing] Pulse Oximetry 97 98 Oxygen Delivery Method Room Air 04/15/24 19:38 04/15/24 20:00 04/15/24 20:01 Temperature Pulse Rate 79 73 77 Pulse Rate [Orthostatic Lying] Pulse Rate [Orthostatic Standing] Respiratory Rate 17 16 Blood Pressure Blood Pressure [Orthostatic Lying] Blood Pressure [Orthostatic Sitting] Blood Pressure [Orthostatic Standing] Pulse Oximetry 97 95 95 Oxygen Delivery Method 04/15/24 20:01 04/15/24 20:30 04/15/24 20:31 Temperature Pulse Rate 77 69 Pulse Rate [Orthostatic Lying] Pulse Rate [Orthostatic Standing] Respiratory Rate 24 21 Blood Pressure 123/64 Blood Pressure [Orthostatic Lying] Blood Pressure [Orthostatic Sitting] Blood Pressure [Orthostatic Standing] Pulse Oximetry 98 97 Oxygen Delivery Method 04/15/24 20:31 04/15/24 21:00 04/15/24 21:01 Temperature Pulse Rate 73 86 Pulse Rate [Orthostatic Lying] Pulse Rate [Orthostatic Standing] Respiratory Rate 18 18 Blood Pressure 138/71 Blood Pressure [Orthostatic Lying] Blood Pressure [Orthostatic Sitting] Blood Pressure [Orthostatic Standing] Pulse Oximetry 96 96 Oxygen Delivery Method 04/15/24 21:01 04/15/24 21:30 04/15/24 21:30 Temperature Pulse Rate 73 Pulse Rate [Orthostatic Lying] Pulse Rate [Orthostatic Standing] Respiratory Rate 18 Blood Pressure 123/78 134/77 Blood Pressure [Orthostatic Lying] Blood Pressure [Orthostatic Sitting] Blood Pressure [Orthostatic Standing] Pulse Oximetry Oxygen Delivery Method 04/15/24 22:00 04/15/24 22:00 04/15/24 22:30 Temperature Pulse Rate 67 67 Pulse Rate [Orthostatic Lying] Pulse Rate [Orthostatic Standing] Respiratory Rate 18 24 Blood Pressure 136/76 Blood Pressure [Orthostatic Lying] Blood Pressure [Orthostatic Sitting] Blood Pressure [Orthostatic Standing] Pulse Oximetry Oxygen Delivery Method 04/15/24 22:30 04/15/24 23:00 04/15/24 23:00 Temperature Pulse Rate 68 Pulse Rate [Orthostatic Lying] Pulse Rate [Orthostatic Standing] Respiratory Rate 18 Blood Pressure 132/80 127/73 Blood Pressure [Orthostatic Lying] Blood Pressure [Orthostatic Sitting] Blood Pressure [Orthostatic Standing] Pulse Oximetry 92 Oxygen Delivery Method 04/15/24 23:16 04/15/24 23:16 04/15/24 23:18 Temperature Pulse Rate 64 68 Pulse Rate [Orthostatic Lying] Pulse Rate [Orthostatic Standing] Respiratory Rate 12 21 Blood Pressure 122/69 Blood Pressure [Orthostatic Lying] Blood Pressure [Orthostatic Sitting] Blood Pressure [Orthostatic Standing] Pulse Oximetry 97 95 Oxygen Delivery Method 04/15/24 23:18 04/15/24 23:21 04/15/24 23:21 Temperature Pulse Rate 75 Pulse Rate [Orthostatic Lying] Pulse Rate [Orthostatic Standing] Respiratory Rate 21 Blood Pressure 128/67 126/82 Blood Pressure [Orthostatic Lying] Blood Pressure [Orthostatic Sitting] Blood Pressure [Orthostatic Standing] Pulse Oximetry 95 Oxygen Delivery Method 04/15/24 23:23 04/15/24 23:30 04/15/24 23:31 Temperature Pulse Rate 70 70 Pulse Rate [Orthostatic Lying] 75 Pulse Rate [Orthostatic Standing] 72 Respiratory Rate 15 24 Blood Pressure Blood Pressure [Orthostatic Lying] 122/69 Blood Pressure [Orthostatic Sitting] 128/67 Blood Pressure [Orthostatic Standing] 126/82 Pulse Oximetry 95 95 Oxygen Delivery Method Room Air 04/15/24 23:31 Temperature Pulse Rate Pulse Rate [Orthostatic Lying] Pulse Rate [Orthostatic Standing] Respiratory Rate Blood Pressure 131/79 Blood Pressure [Orthostatic Lying] Blood Pressure [Orthostatic Sitting] Blood Pressure [Orthostatic Standing] Pulse Oximetry Oxygen Delivery Method MDM - Dizziness Lab Data Attestation: I reviewed the patient's lab results. 04/15/24 19:43 04/15/24 19:43 Labs: Lab Results 04/15/24 04/15/24 04/15/24 Range/Units 19:43 20:25 21:24 WBC 10.5 (4.5-11.0) X10^3/uL RBC 5.41 (4.5-5.9) X10^6/uL Hgb 16.8 (13.5-17.5) g/dL Hct 48.9 (41-53) % MCV 90.4 (80-100) fL MCH 31.1 (26-34) PG MCHC 34.4 (30-36) % RDW 14.2 (11.6-14.8) % Plt Count 239 (150-400) X10^3/uL Neut % (Auto) 59.1 (50-75) % Lymph % (Auto) 29.2 (25-40) % [place] % (Auto) 7.4 (3-14) % Eos % (Auto) 3.6 (2-4) % Baso % (Auto) 0.7 (0-2) % Neut # (Auto) 6200 (0515-4353) /uL Lymph # (Auto) 3100 (7862-2762) /uL [place] # (Auto) 800 (0-900) /uL Eos # (Auto) 400 (0-450) /uL Baso # (Auto) 100 (0-100) /uL PT 11.7 (9.4-12.5) SECONDS INR 1.0 (0.9-1.3) APTT 39 H (25.1-36.5) SECONDS Sodium 142 (137-145) mmol/L Potassium 3.9 (3.4-5.1) mmol/L Chloride 111 H (98-107) mmol/L Carbon Dioxide 23 (22-32) mmol/L BUN 11 (9-20) mg/dL Creatinine 0.84 (0.66-1.25) mg/dL Estimated GFR > 60 (>60) mL/min BUN/Creatinine Ratio 13.1 (6-22) Glucose 137 H (70-100) mg/dL Calcium 9.1 (8.4-10.2) mg/dL Magnesium 2.1 (1.6-2.3) mg/dL Total Bilirubin 0.5 (0.2-1.3) mg/dL AST 27 (17-59) IU/L ALT 32 (<50) IU/L Alkaline Phosphatase 58 (38-126) U/L Total Creatine Kinase 76 (55-170) U/L Troponin I < 0.012 (0.01-0.034) ng/mL NT-Pro-B Natriuret Pep < 20 (<125) pg/mL Total Protein 7.8 (6.3-8.2) g/dL Albumin 4.4 (3.5-5.0) g/dL Globulin 3.4 (1.7-4.1) g/dL Albumin/Globulin Ratio 1.3 (1.0-2.8) Lipase 87 (23-300) U/L Urine RBC None seen (0-5/HPF) Urine WBC None seen (0-5/HPF) Ur Squamous Epith Cells None seen (0-5/HPF) Urine Bacteria None seen (None) Ur Culture Indicated? Cult not indicated Micro UA Comment . Vol Urine Centrifuged 10ml (spun) Chlamy pneumoniae PCR Not detected (Not Detect) Adenovirus (PCR) Not detected (Not Detect) B.parapertussis DNA PCR Not detected (Not Detecte) Coronavirus OC43 (PCR) Not detected (Not Detect) Coronavirus HKU1 (PCR) Not detected (Not Detect) Coronavirus 229E (PCR) Not detected (Not Detect) SARS-CoV-2 (PCR) Not detected (Not Detecte) Coronavirus NL63 (PCR) Not detected (Not Detect) Human Metapneumovir PCR Not detected (Not Detect) Influenza Type A (PCR) Not detected (Not Detect) Influenza Type B (PCR) Not detected (Not Detect) M. pneumoniae (PCR) Not detected (Not Detect) Parainfluenza 1 (PCR) Not detected (Not Detect) Parainfluenza 2 (PCR) Not detected (Not Detect) Parainfluenza 3 (PCR) Not detected (Not Detect) Parainfluenza 4 (PCR) Not detected (Not Detect) RSV (PCR) Not detected (Not Detect) Entero/Rhino (PCR) Not detected (Not Detect) 04/15/24 Range/Units 22:00 WBC (4.5-11.0) X10^3/uL RBC (4.5-5.9) X10^6/uL Hgb (13.5-17.5) g/dL Hct (41-53) % MCV (80-100) fL MCH (26-34) PG MCHC (30-36) % RDW (11.6-14.8) % Plt Count (150-400) X10^3/uL Neut % (Auto) (50-75) % Lymph % (Auto) (25-40) % [place] % (Auto) (3-14) % Eos % (Auto) (2-4) % Baso % (Auto) (0-2) % Neut # (Auto) (9913-2042) /uL Lymph # (Auto) (6891-3215) /uL [place] # (Auto) (0-900) /uL Eos # (Auto) (0-450) /uL Baso # (Auto) (0-100) /uL PT (9.4-12.5) SECONDS INR (0.9-1.3) APTT (25.1-36.5) SECONDS Sodium (137-145) mmol/L Potassium (3.4-5.1) mmol/L Chloride (98-107) mmol/L Carbon Dioxide (22-32) mmol/L BUN (9-20) mg/dL Creatinine (0.66-1.25) mg/dL Estimated GFR (>60) mL/min BUN/Creatinine Ratio (6-22) Glucose (70-100) mg/dL Calcium (8.4-10.2) mg/dL Magnesium (1.6-2.3) mg/dL Total Bilirubin (0.2-1.3) mg/dL AST (17-59) IU/L ALT (<50) IU/L Alkaline Phosphatase (38-126) U/L Total Creatine Kinase (55-170) U/L Troponin I < 0.012 (0.01-0.034) ng/mL NT-Pro-B Natriuret Pep (<125) pg/mL Total Protein (6.3-8.2) g/dL Albumin (3.5-5.0) g/dL Globulin (1.7-4.1) g/dL Albumin/Globulin Ratio (1.0-2.8) Lipase (23-300) U/L Urine RBC (0-5/HPF) Urine WBC (0-5/HPF) Ur Squamous Epith Cells (0-5/HPF) Urine Bacteria (None) Ur Culture Indicated? Micro UA Comment Vol Urine Centrifuged Chlamy pneumoniae PCR (Not Detect) Adenovirus (PCR) (Not Detect) B.parapertussis DNA PCR (Not Detecte) Coronavirus OC43 (PCR) (Not Detect) Coronavirus HKU1 (PCR) (Not Detect) Coronavirus 229E (PCR) (Not Detect) SARS-CoV-2 (PCR) (Not Detecte) Coronavirus NL63 (PCR) (Not Detect) Human Metapneumovir PCR (Not Detect) Influenza Type A (PCR) (Not Detect) Influenza Type B (PCR) (Not Detect) M. pneumoniae (PCR) (Not Detect) Parainfluenza 1 (PCR) (Not Detect) Parainfluenza 2 (PCR) (Not Detect) Parainfluenza 3 (PCR) (Not Detect) Parainfluenza 4 (PCR) (Not Detect) RSV (PCR) (Not Detect) Entero/Rhino (PCR) (Not Detect) Urine Dip Bedside Urine Glucose Negative Bedside Urine Bilirubin ++ 2 Bedside Urine Ketone - Negative Urine Specific [place] 1.010 Bedside Urine Occult Blood - Negative Bedside Urine pH 6.0 Bedside Urine Protein +/- 15 Bedside Urine Urobilinogen - Negative Bedside Urine Nitrite - Negative Bedside Urine Leukocytes - Negative Esterase Imaging Data Chest x-ray: Radiologist's Impression: [address] [address] XRay Report Signed Patient: Yonathan Orozco MR#: [id number] : 1965 Acct:[id number] Age/Sex: 58 / M Date of Service: 04/15/24 Loc: ED Accession Number: [id number] Procedure: XR chest 1V Ordering Provider: Nadeem Tomas MD PROCEDURE: XR CHEST 1V INDICATIONS: chest pain TECHNIQUE: One view of the chest was acquired. COMPARISON: [facility], [place], XR CHEST 1V, 03/29/2022, 21:36. FINDINGS: Surgical changes and devices: None. Lungs and pleura: Diffuse interstitial prominence. Streaky bibasilar opacities favored to represent atelectasis. No substantial pleural effusion or pneumothorax. Suggestion of perihilar airway thickening. Mediastinum: Mediastinal contours appear normal. Heart size is stable. Bones and chest wall: No suspicious bony lesions. Overlying soft tissues appear unremarkable. IMPRESSION: Diffuse interstitial prominence and streaky bibasilar opacities favored to represent atelectasis. No dense consolidation. Mild perihilar airway thickening. Findings may be related to an infectious or inflammatory process although early pulmonary edema not excluded if clinically appropriate. Dictated by: Bo Galaviz M.D. on 04/15/2024 at 20:12 Approved by: Bo Galaviz M.D. on 04/15/2024 at 20:13 ECG Data Interpretation: Normal sinus rhythm with rate of 76, no obvious ST segment elevation or depression changes. MT 164, QRS 100, QTC 445. MDM Narrative Medical decision making narrative: Recent cough, episodic dizziness, respiratory panel negative, possible viral labyrinthitis by history. Given oral dose meclizine. No history of stroke. Reassuring neuro exam, patient preferred imaging, CT Head negative, patient then eloped before any discharge instructions when a trauma case came into the ED. Improved per nursing notes. Discharge Plan Departure Patient Disposition: Elopement Clinical Impression: Spasm of lumbar paraspinous muscle Referrals: Michael Garcia MD [Primary Care Provider] -
[2024-04-15 21:40] LABS: Bacteria Urine None Seen; Culture Indicated Urine Cult Not Indicated; RBC Urine None Seen (0-5/HPF); Squamous Epithelial Cell Urine None Seen (0-5/HPF); Urine Volume 10mL (spun); WBC Urine None Seen (0-5/HPF)
[2024-04-15 22:30] LABS: Troponin I < 0.012 ng/mL (0.01-0.034)
[2024-04-15 22:51] LABS: Adenovirus Not Detected (Not Detect); B. parapertussis Not Detected (Not Detecte); Bordetella pertussis Not Detected (Not Detect); Chlamydophila pneumoniae Not Detected (Not Detect); Coronavirus 229E Not Detected (Not Detect); Coronavirus HKU1 Not Detected (Not Detect); Coronavirus NL 63 Not Detected (Not Detect); Coronavirus OC43 Not Detected (Not Detect); Human Metapneumovirus Not Detected (Not Detect); Human Rhinovirus/Enterovirus Not Detected (Not Detect); Influenza A Not Detected (Not Detect); Influenza B Not Detected (Not Detect); Mycoplasma pneumoniae Not Detected (Not Detect); Parainfluenza Virus 1 Not Detected (Not Detect); Parainfluenza Virus 2 Not Detected (Not Detect); Parainfluenza Virus 3 Not Detected (Not Detect); Parainfluenza Virus 4 Not Detected (Not Detect); Respiratory Syncytial Virus Not Detected (Not Detect); SARS- CoV-2 Not Detected (Not Detecte)
--- NOTE | 2024-04-15 23:54 | DI.CT.S_ITS ---
PROCEDURE: CT HEAD/BRAIN WO CON INDICATIONS: dizziness TECHNIQUE: Noncontrast 4.5 mm thick angled axial sections acquired from the foramen magnum to the vertex, with coronal and sagittal reformats. For radiation dose reduction, the following was used: automated exposure control, adjustment of mA and/or kV according to patient size. COMPARISON: None. FINDINGS: Image quality: Diagnostic. CSF spaces: Basal cisterns are patent. No extra-axial fluid collections. Ventricles are normal in size and shape. Brain: No midline shift. No intracranial masses or hemorrhage. Cortes-white matter interface is normal. Skull and face: Calvarium and visualized facial bones are intact, without suspicious lesions. Sinuses: Visualized sinuses and mastoids are clear. IMPRESSION: No acute intracranial pathology. Dictated by: Bo Gaalviz M.D. on 04/16/2024 at 0:38 Approved by: Bo Galaviz M.D. on 04/16/2024 at 0:39
[2024-04-16] VITALS: BP 129/79; PULSE 72; RESP 22; O2SAT 95
[2024-04-16] MEDS: MECLIZINE HCL 12.5 MG TABLET 50 MG PO (00:05)
== END 2024-04-16 01:50 | disposition left against medical advice (07) ==
PROVIDERS: Emergency Provider Emergency Medicine; PCP Family Medicine
DX: M62.830 Muscle spasm of back (principal); R07.9 Chest pain, unspecified; R05.9 Cough, unspecified; Z11.52 Encounter for screening for COVID-19
CPT/HCPCS: 36415; 70450; 71045; 80053; 81003; 81015; 82550; 83690; 83735; 83880; 84484; 85025; 85610; 85730; 87633; 93005; 99284